=== PATIENT | female | born 1990 | race Two or more races ===

== ENCOUNTER 2019-03-10 23:20 | Inpatient (IN) | payer MEDICAID ==
[~2019-03-10] VITALS: Ht 154.9 cm; Wt 77.1 kg
[2019-03-10] MEDS ORDERED: PNV1TABL50 MT (23:33)
[2019-03-11] MEDS ORDERED: DEXT 5%/LR + PITOCIN 20UNITS/L 1,000 ML IV SCH ×2 (00:06→17:49)
[2019-03-11] MEDS ORDERED: CARBOPROST TROMETHAMINE 250 MCG/ML AMPUL IM PRN (00:15)
[2019-03-11] MEDS ORDERED: BUTORPHANOL TARTRATE 2 MG/ML VIAL IV PRN (00:15)
[2019-03-11] MEDS ORDERED: METHYLERGONOVINE MALEATE 0.2 MG/ML IM PRN (00:15)
[2019-03-11] MEDS ORDERED: NALOXONE HCL 0.4 MG/ML 1ML VIAL IM PRN (00:15)
[2019-03-11] MEDS ORDERED: LIDOCAINE HCL 1% 20ML VIAL (Pyxis) INJ INFIL SCH (00:15)
[2019-03-11 00:35] LABS: BASOPHILS % 0.3 % (0.0-2.0); EOSINOPHILS % 0.9 % (0.0-5.0); HEMATOCRIT. 37.6 % (36.0-48.0); LYMPHOCYTES % 28.3 % (20.0-50.0); MEAN CORPUSCULAR HEMOGLOBIN 32.2 pg (28.0-32.0); MEAN CORPUSCULAR VOLUME 93.2 fL (81.0-99.0); MEAN PLATELET VOLUME 9.1 fl (7.4-10.4); MONOCYTES % 6.9 % (2.0-8.0); NEUTROPHILS % 63.6 % (40.0-76.0); PLATELET 225 x1000/uL (130-400); RED BLOOD CELL COUNT 4.04 mill/uL (4.2-5.4); RED CELL DISTRIBUTION WIDTH 13.4 % (11.6-14.6)
[2019-03-11 00:42] LABS: CLARITY URINE CLEAR (CLEAR); COLOR URINE YELLOW (YELLOW); KETONES URINE TRACE (NEGATIVE); LEUKOCYTE ESTERASE URINE NEGATIVE (NEGATIVE); NITRITE URINE NEGATIVE (NEGATIVE); OCCULT BLOOD URINE NEGATIVE (NEGATIVE); PH URINE 5.5 (4.5-8.0); PROTEIN URINE NEGATIVE (NEGATIVE); SPECIFIC GRAVITY URINE 1.025 (1.005-1.030); UROBILINOGEN URINE 0.2 E.U./dL (0.2-1.0)
[2019-03-11 00:45] LABS: INR 0.9; PARTIAL THROMBOPLASTIN TIME 25.6 sec (23.4-31.0); PROTHROMBIN TIME 9.7 sec (9.6-11.0)
[2019-03-11 00:50] LABS: *AMPHETAMINES SCREEN URINE NEGATIVE (NEGATIVE); *BARBITURATES SCREEN URINE NEGATIVE (NEGATIVE); *BENZODIAZEPINES SCREEN URINE NEGATIVE (NEGATIVE); *COCAINE SCREEN URINE NEGATIVE (NEGATIVE)
[2019-03-11 00:51] LABS: CANNABINOID URINE SCREEN NEGATIVE (NEGATIVE); METHADONE URINE SCREEN NEGATIVE (NEGATIVE); OPIATES URINE SCREEN NEGATIVE (NEGATIVE); PHENCYCLIDINE URINE SCREEN NEGATIVE (NEGATIVE)
[2019-03-11] MEDS: LACTATED RINGERS 1,000 ML IV SCH ×3 (01:17→09:11)
[2019-03-11 01:22] LABS: HEPATITIS B SURFACE ANTIGEN NEGATIVE
[2019-03-11] MEDS ORDERED: ROPIVACAINE HCL/PF EPIDURAL 200 ML EPI SCH (11:15)
[2019-03-11] MEDS ORDERED: FENTANYL CITRATE/PF 50MCG/ML 2ML VIAL ONE (14:58)
[2019-03-11] MEDS ORDERED: LIDOCAINE HCL/PF 1% 10 MG/ML 5ML VIAL ONE (14:58)
[2019-03-11] MEDS ORDERED: BENZOCAINE/LANOLIN/ALOE VERA SPRAY TOP PRN (18:00)
[2019-03-11] MEDS ORDERED: DIPHENHYDRAMINE 25MG CAPSULE PO PRN (18:00)
[2019-03-11] MEDS ORDERED: INFLUENZA VIRUS VACCINE(AFLURIA) 0.5ML SYR IM ONE (18:00)
[2019-03-11] MEDS ORDERED: HEMORRHOIDAL SUPP PR PRN (18:00)
[2019-03-11] MEDS ORDERED: LANOLIN OINT 0.25 GM TUBE TOP PRN (18:00)
[2019-03-11] MEDS ORDERED: TETANUS, DIPHTHERIA, PERTUSSIS VAC/PF 0.5ML (>7YR OLD) IM ONE (18:00)
[2019-03-11] MEDS ORDERED: RHO(D) IMMUNE GLOBULIN 300 MCG/SYR IM PRN (18:00)
[2019-03-11] MEDS ORDERED: GLYCERIN/WITCH HAZEL LEAF MEDICATED PAD TOP PRN (18:00)
[2019-03-11] MEDS ORDERED: BISACODYL 10MG SUPP PR PRN (18:00)
[2019-03-11] MEDS ORDERED: IBUPROFEN 400MG TABLET PO PRN (18:00)
[2019-03-11 20:30] VITALS: BP_SYST 112; BP_SYST 116; BP_DIAS 58; BP_DIAS 62
[2019-03-11 21:00] VITALS: BP 125/62
[2019-03-11] MEDS ORDERED: DOCUSATE SODIUM 100MG CAPSULE PO SCH (21:00)
[2019-03-11 23:00] VITALS: BP 124/58
[2019-03-12 04:00] VITALS: BP 129/69
[2019-03-12] MEDS: IBUPROFEN 800MG TABLET PO PRN ×2 (05:51→12:41)
[2019-03-12 07:10] LABS: BASOPHILS % 0.4 % (0.0-2.0); EOSINOPHILS % 0.7 % (0.0-5.0); HEMATOCRIT. 31.1 % (36.0-48.0); HEMOGLOBIN. 10.6 g/dL (12.0-16.0); LYMPHOCYTES % 20.6 % (20.0-50.0); MEAN CORPUSCULAR VOLUME 93.7 fL (81.0-99.0); MEAN PLATELET VOLUME 8.8 fl (7.4-10.4); MONOCYTES % 8.5 % (2.0-8.0); NEUTROPHILS % 69.8 % (40.0-76.0); PLATELET 180 x1000/uL (130-400); RED BLOOD CELL COUNT 3.32 mill/uL (4.2-5.4); RED CELL DISTRIBUTION WIDTH 13.4 % (11.6-14.6)
[2019-03-12 07:36] VITALS: BP 126/68
[2019-03-12] MEDS: PRENATAL VIT/FE FUMARATE/FA TABLET PO SCH (08:52)
[2019-03-12] MEDS: FERROUS SULFATE 325MG TABLET PO SCH ×3 (08:52→17:49)
[2019-03-12 16:14] VITALS: BP 113/59
[2019-03-12] MEDS: ACETAMINOPHEN WITH CODEINE 300/30MG TABLET PO PRN (17:49)
[2019-03-12 20:30] VITALS: BP 123/60
[2019-03-13] MEDS: IBUPROFEN 800MG TABLET PO PRN ×2 (00:36→11:19)
[2019-03-13 04:00] VITALS: BP 130/62
[2019-03-13] MEDS: ACETAMINOPHEN WITH CODEINE 300/30MG TABLET PO PRN (04:04)
[2019-03-13] MEDS ORDERED: LEVOTHYROXINE SODIUM 75MCG TABLET PO SCH (07:00)
[2019-03-13 08:00] VITALS: BP 111/70
[2019-03-13] MEDS: FERROUS SULFATE 325MG TABLET PO SCH (08:50)
[2019-03-13] MEDS: PRENATAL VIT/FE FUMARATE/FA TABLET PO SCH (08:50)
== END 2019-03-13 11:40 | disposition home or self-care (01) | DRG 560 ==
LOC: 8 EST LDRP 23:20 → OBSVTOIN 23:20 → 8EST 03-11 20:15
PROVIDERS: ADMIT Obstetrics & Gynecology; ATTEND Obstetrics & Gynecology
PROC: 10E0XZZ Delivery of Products of Conception, External Approach (ICD-10-PCS; principal; 2019-03-11)
DX: O99.284 Endocrine, nutritional and metabolic diseases complicating childbirth (principal); E03.9 Hypothyroidism, unspecified; Z37.0 Single live birth; Z3A.39 39 weeks gestation of pregnancy; O90.81 Anemia of the puerperium
CPT/HCPCS: 36415; 80305; 86592; 86703; 86762; 86850; 86900; 87340; 99281; J0595; J2590; J2795; J3010; J3490; J7120; A4315